=== PATIENT | female | born 1955 | race Caucasian/White ===

== ENCOUNTER → 2018-09-05 | Outpatient (CLI) | payer OTHER ==
[~2018-09-05] MED LIST: ACTOS15 MG PO; DILTIAZEM 24HR120 M1 PO; LISINOPRIL5 MG PO; MEDROL DOSPAK21 TA1 PO; METFORMIN HCL500 MG PO; PREMARIN0.625 MG PO; PROPAFENONE 15150 MG PO; PROPAFENONE 22225 MG PO; SORINE 80 MG TA80 M1 PO; XARELTO20 MG PO; ZOCOR20 MG PO
[2018-09-05 09:53] LABS: HEMOGLOBIN 11.7 gm/dL (12.0-15.0); MCH 27.2 pg (26.0-34.0); MCHC 32.5 g/dL (28.0-37.0); MCV 83.9 fL (80.0-100.0); MPV 9.2 fl. (7.2-11.1); RBC 4.29 mil/uL (4.20-5.00); URINE BILIRUBIN NEGATIVE (Negative); URINE BLOOD NEGATIVE (Negative); URINE CLARITY CLEAR; URINE COLOR YELLOW; URINE GLUCOSE-RANDOM NEGATIVE (Negative); URINE KETONES NEGATIVE (Negative); URINE LEUKOCYTES NEGATIVE (Negative); URINE NITRITE NEGATIVE (Negative); URINE PROTEIN NEGATIVE (Negative); URINE SPECIFIC GRAVITY <= 1.005 (1.005-1.030); URINE UROBILINOGEN 0.2 E.U./dl (0.2-1.0); WBC 7.6 thou/uL (4.0-11.0)
[2018-09-05 10:05] LABS: ALBUMIN 3.7 g/dL (3.4-5.0); ALKALINE PHOSPHATASE 49 U/L (46-116); ANION GAP 11 mmol/L (7-16); BUN 14 mg/dL (7-18); CALCIUM 8.8 mg/dL (8.5-10.1); CHLORIDE 103 mmol/L (98-107); CHOLESTEROL 185 mg/dL (<200); CO2 26 mmol/L (21-32); CREATININE 0.6 mg/dL (0.6-1.3); GLUCOSE 120 mg/dL (70-99); HDL CHOLESTEROL 81 mg/dL (>40); LDL CHOLESTEROL 91 mg/dL (<100); POTASSIUM 3.9 mmol/L (3.5-5.1); SGOT 15 U/L (15-37); SGPT 16 U/L (30-65); SODIUM 140 mmol/L (136-145); TC:HDL 2.3 Ratio (Not establshd); TOTAL BILIRUBIN 0.4 mg/dL (<0.1-1.0); TOTAL PROTEIN 7.6 g/dL (6.4-8.2); TRIGLYCERIDE 67 mg/dL (<150); VLDL 13 mg/dL (<40)
[2018-09-05 10:08] LABS: SERUM ASSESSMENT Clear
[2018-09-06 02:07] LABS: GLYCOHEMOGLOBIN (HGB A1C) 6.2 % (4.8-5.6)
== END ==
LOC: M.LAB 09:24
PROVIDERS: Nurse Practitioner Family
DX: E11.9 Type 2 diabetes mellitus without complications (principal); E55.9 Vitamin D deficiency, unspecified

== ENCOUNTER 2018-12-31 12:15 | Inpatient (IN) | payer OTHER ==
[~2018-12-31] VITALS: Ht 167.6 cm; Wt 73.9 kg
--- NOTE | ~2018-12-31 | CON ---
[address] [address] CONSULTATION Name: CORNEL CASTILLO Room: [address] IN .R.#: [id number] Admission: 12/31/18 Attend Phys: Tracee Shah MD Discharge: Date of : 53 Report #: [id number] THIS REPORT FOR: //name// CC: [facility] physician/PCP Tracee Shah DICTATED BY: Ludmila Jiménez [facility] DATE OF SERVICE: 01/01/2019 Please send a copy to her PCP; however, she cannot remember the name of her new PCP. Please note at the time of this dictation, the patient was seen and physically examined by myself. REASON FOR CONSULTATION: Anemia. HISTORY OF PRESENT ILLNESS: This is a pleasant 63-year-old female who presented to the Emergency Room with some confusion and general malaise. She was having some lower abdominal discomfort, urinary frequency. She did have a little bit of nausea and vomiting, some diarrhea, and fever and chills as well. She was talking to her sister on the phone and noticed that she had a little bit of slurred speech which was concerning prompting her to come in. It was noted at that time on admission that she had a urinary tract infection and most of her symptoms have resolved at this particular time except she has got a little bit of lower abdominal cramping at this time. In further investigating it was noted that the patient is anemic. Hemoglobin was 10.7. She had no hematemesis or hematochezia that was noted upon admission or any history of that in the past. The patient states she has never had any upper or lower scopes done either and she was told a while back that she was anemic, but nothing was done about it. In reviewing her lab records back in 2017, her hemoglobin was 11.1, currently on admission, she was 10.7. ALLERGIES: No known drug allergies. MEDICATIONS: From home include Premarin, Zocor, Actos, Glucophage, and Xarelto. PAST MEDICAL HISTORY: Atrial fibrillation, diabetes, hypertension, history of an LA, and currently UTI. History of cervical cancer. PAST SURGICAL HISTORY: Hysterectomy. FAMILY HISTORY: Two siblings with cervical cancer. SOCIAL HISTORY: Denies any alcohol, tobacco, [place] [address] CONSULTATION Name: CORNEL CASTILLO Room: [address]#: [id number] Admission: 12/31/18 Attend Phys: Tracee Shah MD Discharge: Date of : 53 Report #: [id number] REVIEW OF SYSTEMS: Twelve-point review of systems is essentially negative except what is mentioned in the HPI. PHYSICAL EXAMINATION: VITAL SIGNS: Temperature 38.1, pulse 75, respirations 15, blood pressure 140/72. HEART: Irregular rate and rhythm. LUNGS: Clear. ABDOMEN: Soft, positive bowel sounds in all 4 quadrants with no masses or tenderness noted at this time. LABORATORY DATA: Hemoglobin 10.7, white count was 19 on admission, she is down to 11.9, platelets 257. GFR is 68. LFTs are completely normal. B12 is 438. Ferritin is 91. Iron is only 10. Positive UTI. IMPRESSION: 1. Anemia. 2. Anticoagulant therapy, Xarelto for atrial fibrillation. 3. Leukocytosis. 4. Personal and family history of cervical cancer. 5. Urinary tract infection, complicated. PLAN: 1. We will have to plan on doing EGD and colonoscopy as an outpatient due to her currently being on Xarelto and likely going home tomorrow or . 2. Since the patient is having no overt bleeding and will have to be off her Xarelto for several days, she is agreeable with proceeding with this as an outpatient. Thank you for allowing us to participate in this patient's care. Please do not hesitate to call with any questions in regard to this consult. By: [id number] Hernandez MD /nt
[2018-12-31 12:17] VITALS: BP 113/73
[2018-12-31 13:11] LABS: ABSOLUTE BASOPHILS 0.1 thou/uL (0.0-0.2); ABSOLUTE LYMPHOCYTES 2.2 thou/uL (0.8-5.3); ABSOLUTE NEUTROPHILS 15.7 thou/uL (1.6-8.1); BASOPHILS 0.5 %; HEMATOCRIT 34.3 % (37.0-47.0); HEMOGLOBIN 10.9 gm/dL (12.0-15.0); LYMPHOCYTES 11.7 %; MCH 26.7 pg (26.0-34.0); MCHC 31.9 g/dL (28.0-37.0); MCV 83.7 fL (80.0-100.0); MONOCYTES 5.1 %; MPV 8.6 fl. (7.2-11.1); NUCLEATED RBCS 0 /100WBC; PLATELET COUNT* 329 thou/uL (150-400); POLYS 82.7 %; RDW-CV 15.1 % (10.5-14.5)
[2018-12-31 13:20] LABS: BE -1.5 mmol/L (-2 to +3); PCO2 29.4 mmHg (35.0-45.0); PO2 60.5 mmHg (75.0-100.0); pH 7.475 (7.340-7.450)
[2018-12-31 13:21] LABS: CALCIUM 8.9 mg/dL (8.5-10.1); POTASSIUM 4.2 mmol/L (3.5-5.1)
[2018-12-31 13:25] LABS: ALBUMIN 3.1 g/dL (3.4-5.0); MAGNESIUM 1.7 mg/dL (1.8-2.4); TOTAL BILIRUBIN 0.4 mg/dL (<0.1-1.0); TOTAL PROTEIN 7.6 g/dL (6.4-8.2)
[2018-12-31 14:07] LABS: URINE BILIRUBIN NEGATIVE (Negative); URINE BLOOD 1+ (Negative); URINE CLARITY CLEAR; URINE COLOR YELLOW; URINE GLUCOSE-RANDOM NEGATIVE (Negative); URINE KETONES TRACE (Negative); URINE LEUKOCYTES-REFLEX NEGATIVE (Negative); URINE PROTEIN 2+ (Negative); URINE SPECIFIC GRAVITY >= 1.030 (1.005-1.030); URINE UROBILINOGEN 0.2 E.U./dl (0.2-1.0)
[2018-12-31 14:20] LABS: URINE NITRITE-REFLEX POSITIVE (Negative)
[2018-12-31 14:21] LABS: CASTS None Seen /LPF (None Seen); CRYSTALS None Seen /LPF (None Seen); SQUAMOUS 4-10 Moderate /LPF (0-3); URINE RBC 0-2 Rare /HPF (0-2); URINE WBC-REFLEX 6-15 Few /HPF (0-5)
[2018-12-31 15:12] VITALS: BP 125/67
[2018-12-31 15:30] VITALS: BP 125/67
--- NOTE | 2018-12-31 16:12 | NUR ---
ASSESSMENT COMPLETE. PT ADMITTED WITH FEVER AND CHILLS WITH UTI/UROSEPSIS. PT VSS, ON ROOM AIR WITH [place] SATS. IV ROCEPHIN GIVEN IN ED. IV FLUIDS INFUSING AT 125. BOLUS X2 GIVEN IN ED. PT IS ACCU CHECK ACHS. CXR NEGATIVE. PT GIVEN TYLENOL FOR HEADACHE. PT IS UP WITH STANDBY ASSIST, FALL RISK DUE TO WEAKNESS AND IV PUMP. PT IS RESTING WITH NO OTHER CONCERNS. SEE ASSESSMENT AND VITALS FOR OTHER DETAILS. CALL LIGHT WITHIN REACH. WILL CONTINUE PLAN OF CARE
--- NOTE | 2018-12-31 17:08 | EKG ---
[place] [address] ELECTROCARDIOGRAM REPORT Name: CORNEL CASTILLO Room: [address] ADM IN M.R.#: [id number] Admission: 12/31/18 Attend Phys: Tracee Shah MD Discharge: Date of : 53 Report #: [id number] THIS REPORT FOR: //name// [facility] ED Test Date: 2018-12-31 Test Time: 12:31:13 Pat Name: CORNEL CASTILLO Department: Room: [address] Gender: F Nurse Advisor: : [id number] Requested By: Meeta Rosales Order Number: [id number] Reading MD: Jack Crowell Measurements Intervals [place] Rate: 94 P: 41 ME: 146 QRS: -46 QRSD: 108 T: 48 QT: 363 QTc: 454 Interpretive Statements Sinus rhythm Left anterior fascicular block Abnormal R-wave progression, late transition Baseline wander in lead(s) V4 Compared to ECG 08/03/2016 08:28:21 Sinus bradycardia no longer present Early repolarization no longer present Possible ischemia no longer present Electronically Signed On 12-31-2018 17:08:36 CDT by Jack Crowell [email or web address] <ELECTRONICALLY SIGNED> By: Jack Crowell MD, FACC 12/31/18 1708 1231 1231 Jack Crowell MD, FACC /EPI
--- NOTE | 2018-12-31 17:16 | 2DMMODE ---
[place] [address] 2 D/M-MODE ECHOCARDIOGRAM Name: CORNEL CASTILLO Room: [address] IN .R.#: [id number] Admission: 12/31/18 Attend Phys: Tracee Shah, Discharge: Date of : 53 Date of Service: 12/31/18 1716 Report #: [id number] THIS REPORT FOR: //name// APPROVED REPORT Study performed: 12/31/2018 16:29:31 EXAM: Comprehensive 2D, Doppler, and color-flow Echocardiogram Patient Location: Bedside BSA: 1.81 HR: 95 bpm BP: 125/67 mmHg Other Information Study Quality: Fair Indications Sepsis Fever Pulmonary Venous Congestion 2D Dimensions IVSd: 12.56 (7-11mm) LVOT Diam: 17.97 (18-24mm) LVDd: 45.90 mm PWd: 11.39 (7-11mm) Ascending Ao: 34.14 (22-36mm) LVDs: 29.76 (25-40mm) Aortic Root: 29.32 mm Volumes Left Atrial Volume (Systole) LA ESV Index: 17.10 mL/m2 Aortic Valve AoV Peak Migue.: 1.63 m/s AO Peak Gr.: 10.57 mmHg LVOT Max P.35 mmHg AO Mean Gr.: 5.92 mmHg LVOT Mean P.37 mmHg LVOT Max V: 1.36 m/s AO V2 VTI: 27.17 cm LVOT Mean V: 0.83 m/s ARLEEN (VTI): 2.19 cm2 LVOT V1 VTI: 23.46 cm Mitral Valve E/A Ratio: 1.31 MV Decel. Time: 215.48 ms MV E Max Migue.: 1.05 m/[place] [address] 2 D/M-MODE ECHOCARDIOGRAM Name: CORNEL CASTILLO Room: [address] IN ..#: [id number] Admission: 12/31/18 Attend Phys: Tracee Shah, Discharge: Date of : 53 Date of Service: 12/31/18 1716 Report #: [id number] MV PHT: 62.49 ms MVA (PHT): 3.52 cm2 TDI E/Lateral E': 9.55 E/Medial E': 7.00 Medial E' Migue.: 0.15 m/s Lateral E' Migue.: 0.11 m/s Pulmonary Valve PV Peak Migue.: 1.21 m/s PV Peak Gr.: 5.88 mmHg Tricuspid Valve RAP Estimate: 5.00 mmHg TR Peak Gr.: 26.86 mmHg RVSP: 31.86 mmHg PA Pressure: 31.86 mmHg Left Ventricle The left ventricle is normal size. There is normal LV segmental wall motion. There is normal left ventricular wall thickness. Left ventricular systolic function is normal. The left ventricular ejection fraction is within the normal range. LVEF is 65%. Right Ventricle The right ventricle is normal size. The right ventricular systolic function is normal. Atria The left atrium size is normal. The right atrium size is normal. Aortic Valve The aortic valve is normal in structure. No aortic regurgitation is present. There is no aortic valvular stenosis. Mitral Valve The mitral valve is normal in structure. There is no mitral valve regurgitation noted. No evidence of mitral valve stenosis. Tricuspid Valve The tricuspid valve is normal in structure. Trace tricuspid regurgitation. Pulmonic Valve The pulmonary valve is normal in structure. [place] [address] 2 D/M-MODE ECHOCARDIOGRAM Name: CORNEL CASTILLO Room: [address]#: [id number] Admission: 12/31/18 Attend Phys: Tracee Shah, Discharge: Date of : 53 Date of Service: 12/31/18 1716 Report #: [id number] Great Vessels The aortic root is normal in size. IVC is normal in size and collapses >50% with inspiration. Pericardium There is no pericardial effusion. <Conclusion> The left ventricle is normal size. There is normal left ventricular wall thickness. Left ventricular systolic function is normal. The left ventricular ejection fraction is within the normal range. LVEF is 65%. The left atrium size is normal. The aortic valve is normal in structure. The mitral valve is normal in structure. The tricuspid valve is normal in structure. IVC is normal in size and collapses >50% with inspiration. There is no pericardial effusion. There is normal LV segmental wall motion. <ELECTRONICALLY SIGNED> By: Refugio Pak MD, [facility] 12/31/18 1716 15 15 Refugio Pak MD, FACC /INF
[2018-12-31 20:00] VITALS: BP 124/62
[2019-01-01 00:58] VITALS: BP 132/69
[2019-01-01 04:05] VITALS: BP 134/60; BP 149/72
[2019-01-01 04:34] LABS: HEMATOCRIT 33.6 % (37.0-47.0); HEMOGLOBIN 10.7 gm/dL (12.0-15.0); MCH 27.2 pg (26.0-34.0); MCHC 31.7 g/dL (28.0-37.0); MCV 85.7 fL (80.0-100.0); MPV 9.2 fl. (7.2-11.1); RBC 3.92 mil/uL (4.20-5.00); RDW-CV 15.3 % (10.5-14.5); WBC 11.9 thou/uL (4.0-11.0)
[2019-01-01 04:49] LABS: CALCIUM 8.4 mg/dL (8.5-10.1); CREATININE 0.7 mg/dL (0.6-1.3); MAGNESIUM 1.7 mg/dL (1.8-2.4); POTASSIUM 3.8 mmol/L (3.5-5.1)
--- NOTE | 2019-01-01 05:20 | NUR ---
PT SLEPT OFF AND ON OVERNIGHT. AOX4, FORGETFUL. HS ACCUCHECK WNL. AM LABS DRAWN. UP WITH SBA TO BSC TO VOID OVERNIGHT. TYLENOL GIVEN FOR HEADACHE, BODY ACHES AND FEVER OVERNIGHT. RAC IVF INFUSING PER PUMP. ABLE TO USE CALL LITE AND MAKE NEEDS KNOWN. BED ALARM ON OVERNIGHT FOR SAFETY.
[2019-01-01 07:39] VITALS: BP 140/72
--- NOTE | 2019-01-01 11:46 | NUR ---
INITIAL ASSESSMENT: Pt evaluated for d/c planning needs. Reviewed chart and spoke with nurse, pt and pt's sister. Pt is alert and oriented. Pt lives in house with spouse and was independent with ADL's prior to admission. Pt is employed outside the home. Pt uses no DME and has not had home health in the past. Pt plans on returning home on d/c from hospital. Will remain available to assist as needed.
[2019-01-01 16:30] VITALS: BP 152/51
--- NOTE | 2019-01-01 18:22 | NUR ---
PT A&Ox4. VITALS STABLE. IV PATENT. TYLENOL GIVEN FOR ELEVATED TEMP AND A HEAD ACHE. UP AD GLADYS. DENIED NAUSEA/VOMITING. CALL LIGHT WITHIN REACH. WILL CONTINUE TO MONITOR.
[2019-01-01 20:20] VITALS: BP 141/65
[2019-01-02 04:15] LABS: HEMATOCRIT 26.2 % (37.0-47.0); MCH 27.2 pg (26.0-34.0); MCHC 32.7 g/dL (28.0-37.0); MPV 8.9 fl. (7.2-11.1); RBC 3.15 mil/uL (4.20-5.00); RDW-CV 14.5 % (10.5-14.5); WBC 11.9 thou/uL (4.0-11.0)
[2019-01-02 04:23] LABS: HEMOGLOBIN 8.6 gm/dL (12.0-15.0)
--- NOTE | 2019-01-02 04:32 | NUR ---
PATIENT HAS REMAINED ALERT AND ORIENTED X 4 THROUGHOUT THE SHIFT WITH SLIGHT FORGETFULNESS NOTED AT TIMES. UP IN HALLS TO AMBULATE WITH AT SHIFT CHANGE. TOLERATED WELL. FELT BETTER OVERALL. STILL HAS STATED LOW ABDOMINAL PAIN THAT RADIATES TO GROIN AND BACK PAIN. MEDICATED WITH LOW DOSE OF MORPHINE AT HS TO FAIR EFFECT. IVF'S PER ORDER. DAILY AM ANTIBIOTIC PROVIDED BY CLARAARGILA. AWOKE IN THE NIGHT TO USE THE BR. PATIENT STATED HER NOSE IS SO STUFFY SHE CAN'T SLEEP AND FELT NAUSEATED. ZOFRAN PROVIDED FOR NAUSEA TO GOOD EFFECT. PATIENT STATED SHE USUALLY TAKES FLONASE AT HOME AND HASN'T HAD IT HERE. PHYSICIAN PROCESS EQUIPMENT OPERATOR NOTIFIED AND FLONASE ORDERED. WHEN MEDICATION UP FROM PHARMACY THIS WAS PROVIDED. AT THIS TIME, HOWEVER, SHE WAS NOW WHEEZY AND SOMEWHAT CONGESTED. VITAL SIGNS STABLE WITH EXCEPTION OF O2 SAT OF 89-90%. O2 APPLIED AT 2L/MIN WITH LATER RECHECK 96%. ANOTHER DISCUSSION WITH PATIENT PROVIDED INFO THAT SHE HAS NOT BEEN DIAGNOSED WITH ASTHMA BUT TAKES 2 DIFFERENT PRN INHALERS FOR ASTHMA LIKE SYMPTIOMS. PHYSICIAN MADE AWARE AND DUO-EVANS TREATMENTS Q4H PRN ORDERED. RT HERE AT THIS TIME FOR TREATMENT. PATIENT HAS BEEN AFEBRILE THIS SHIFT. LEFT EYE WITH BROKEN BLOOD VESSEL NOTED FIRST BY PATIENT AND THEN REPORTED TO NURSE. PATIENT STATES THIS HAPPENED SEVERAL WEEKS AGO WELL AND RESOLVED ON IT'S OWN. WILL CONTINUE TO MONITOR.
[2019-01-02 04:41] LABS: ALBUMIN 2.4 g/dL (3.4-5.0); CALCIUM 8.4 mg/dL (8.5-10.1); CREATININE 0.6 mg/dL (0.6-1.3); MAGNESIUM 1.5 mg/dL (1.8-2.4); POTASSIUM 3.1 mmol/L (3.5-5.1); TOTAL BILIRUBIN 0.3 mg/dL (<0.1-1.0); TOTAL PROTEIN 6.3 g/dL (6.4-8.2)
--- NOTE | 2019-01-02 05:10 | NUR ---
POTASSIUM AND MAGNESIUM REPLACEMENT IN PROGRESS R/T THIS AM'S LAB RESULTS.
[2019-01-02] MEDS ORDERED: ZYRTEC 10 MG TA10 MG PO (07:01)
[2019-01-02] MEDS ORDERED: ASMANEX HFA13 GM (07:03)
[2019-01-02] MEDS ORDERED: VENTOLIN HFA 1818 GM (07:35)
[2019-01-02 07:40] VITALS: BP 125/51; BP 126/64
[2019-01-02 09:08] LABS: ABSOLUTE MONOCYTES 0.9 thou/uL (0.0-1.2); ABSOLUTE NEUTROPHILS 9.4 thou/uL (1.6-8.1); BASOPHILS 0.4 %; HEMATOCRIT 25.9 % (37.0-47.0); HEMOGLOBIN 8.5 gm/dL (12.0-15.0); LYMPHOCYTES 8.7 %; MCH 27.1 pg (26.0-34.0); MCHC 32.9 g/dL (28.0-37.0); MCV 82.2 fL (80.0-100.0); MONOCYTES 7.7 %; NUCLEATED RBCS 0 /100WBC; PLATELET COUNT* 269 thou/uL (150-400); POLYS 83.2 %; RBC 3.15 mil/uL (4.20-5.00); RDW-CV 14.7 % (10.5-14.5); WBC 11.3 thou/uL (4.0-11.0)
[2019-01-02 16:00] VITALS: BP 142/76
[2019-01-02 20:00] VITALS: BP 146/75
[2019-01-03 04:02] LABS: HEMATOCRIT 24.8 % (37.0-47.0); HEMOGLOBIN 8.2 gm/dL (12.0-15.0); MCH 27.3 pg (26.0-34.0); MCHC 33.1 g/dL (28.0-37.0); MCV 82.5 fL (80.0-100.0); MPV 9.2 fl. (7.2-11.1); RDW-CV 14.8 % (10.5-14.5); WBC 9.1 thou/uL (4.0-11.0)
[2019-01-03 04:19] LABS: ALBUMIN 2.3 g/dL (3.4-5.0); CALCIUM 8.8 mg/dL (8.5-10.1); CREATININE 0.6 mg/dL (0.6-1.3); MAGNESIUM 1.6 mg/dL (1.8-2.4); TOTAL BILIRUBIN 0.4 mg/dL (<0.1-1.0); TOTAL PROTEIN 6.3 g/dL (6.4-8.2)
--- NOTE | 2019-01-03 04:30 | NUR ---
PATIENT HAS REMAINED ALERT AND ORIENTED X 4 THROUGHOUT THE SHIFT. REQUESTED SOMETHING STRONGER THAN TYLENOL FOR PAIN OTHER THAN IV MORPHINE WELL SOMETHING FOR SLEEP. DID OBTAIN ORDERS FOR BOTH REQUESTS. PATIENT WAS ASLEEP WHEN MEDS AVAILABLE AND HAS SLEPT WELL WITHOUT INTERVENTION. O2 RE-APPLIED FOR ROOM AIR O2 SAT 88% ON FIRST ROUNDS. DENIED SHORTNESS OF AIR. LUNGS SOUNDS CLEAR AND WITHOUT WHEEZES. TEMP 99.4. IV ANTIBIOTICS PER ORDERS. CONTINUE TO MONITOR.
[2019-01-03 07:30] VITALS: BP 144/76
[2019-01-03 16:39] VITALS: BP 150/80
--- NOTE | 2019-01-03 17:10 | NUR ---
ASSUMED CARE OF PATIENT AT APPROX 0730. ALERT AND ORIENTED X4. VSS ON ROOM AIR. COMPLAINTS OF PAIN ADDRESSED WITH MORPHINE AND TRAMADOL. SOME COMPLAINT OF NAUSEA AND VOMITED AFTER EATING LUNCH, GAVE ZOFRAN WITH RESOLUTION. PATIENT UP AD GLADYS IN THE ROOM AND WALKED THE UNIT WITH THERAPY TODAY. NO OTHER COMPLAINTS THROUGHOUT SHIFT. CALL LIGHT WITHIN REACH. HOURLY ROUNDS COMPLETED. WILL CONTINUE TO MONITOR.
[2019-01-03 21:12] VITALS: BP 159/85
--- NOTE | 2019-01-04 06:21 | NUR ---
PATIENT REQUESTED MELATONIN 2114. SHE WENT TO BED SHORTLY AFTER AND STAYED ASLEEP DURING SHIFT. SHE DID NOT WAKE UP UNTIL 0600 AND I REASSESSED HER PAIN, SHE REPORTED NONE. SAID SHE WAS ABLE TO GET GOOD REST FOR THE FIRST TIME IN A WEEK.
[2019-01-04 08:04] VITALS: BP 154/84
[2019-01-04] MEDS ORDERED: LEVAQUIN 500 M500 M2 PO (09:43)
[2019-01-04] MEDS ORDERED: TRAMADOL 50 MG50 MG PO (09:43)
[2019-01-04] MEDS ORDERED: FLUCONAZOLE 10100 MG PO (09:43)
[2019-01-04] MEDS ORDERED: LISINOPRIL5 MG PO (09:45)
[2019-01-04 10:19] VITALS: BP 154/84
--- NOTE | 2019-01-04 10:42 | NUR ---
PT DISCHARGED AND LEFT UNIT AT 1042 WITH NURSING STAFF AND . IV OUT. PT STABLE UPON DISCHARGE. PAPER SCRIPTS AND CARE NOTES GIVEN. PERSONAL ITEMS SENT WITH PT.
== END 2019-01-04 10:42 | disposition home or self-care (01) | DRG 871 ==
LOC: M.ERS 12:15 → M.TBA-ER 14:40 → M.ORTHSURG 14:40
PROVIDERS: Personal Emergency Response Attendant; ADMIT Internal Medicine
DX: A41.9 Sepsis, unspecified organism (principal); G92 Toxic encephalopathy; N39.0 Urinary tract infection, site not specified; E11.9 Type 2 diabetes mellitus without complications; I10 Essential (primary) hypertension; D64.9 Anemia, unspecified; E78.5 Hyperlipidemia, unspecified; I48.0 Paroxysmal atrial fibrillation; B37.3 Candidiasis of vulva and vagina; Z79.899 Other long term (current) drug therapy; Z90.710 Acquired absence of both cervix and uterus; Z85.41 Personal history of malignant neoplasm of cervix uteri; I25.2 Old myocardial infarction; Z80.8 Family history of malignant neoplasm of other organs or systems; Z79.01 Long term (current) use of anticoagulants